=== PATIENT | male | born 1935 | race Caucasian/White ===

== ENCOUNTER 2023-07-21 09:24 | Observation (INO) | payer MEDICARE, OTHER, SELFPAY ==
[2023-07-21] VITALS (10 sets, daily range): BP systolic 128–163; BP diastolic 73–96; PULSE 65–86; RESP 16–20; TEMP 36.3–36.8; O2SAT 94–99
--- NOTE | ~2023-07-21 | XR_ITS ---
EXAMINATION: XR chest 1V portable DATE: 07/21/2023 09:46 INDICATION: Dyspnea TECHNIQUE: frontal view of the chest was obtained. COMPARISON: None FINDINGS: Hazy opacities in the bilateral lower lung zones with blunting at costophrenic angles and small amoun t of fluid tracking along the fissures on the right consistent with small bilateral pleural effusions , right greater than left, with associated atelectasis or pneumonia. No pneumothorax or evident pulmo nary edema. The cardiomediastinal silhouette is within normal limits for AP technique. Spinal stimula tor leads project over the central canal the lower thoracic spine. IMPRESSION: 1. Small bilateral pleural effusions, right greater than left, with bibasilar atelectasis versus less pneumonia. Reviewed, dictated and finalized at location A. IMPRESSION: 1. Small bilateral pleural effusions, right greater than left, with bibasilar a telectasis versus less pneumonia.
--- NOTE | ~2023-07-21 | US_ITS ---
EXAMINATION:US venous doppler LE BI INDICATION:Leg edema TECHNIQUE: Multiple grayscale, color flow and Doppler images of the right and left lower extremity de ep venous systems were obtained and reviewed. COMPARISON:No prior studies for comparison. FINDINGS: The common femoral, superficial femoral and popliteal veins demonstrate normal respiratory variation, augmentation and compressibility. Color flow is also seen within the posterior tibial, pe roneal, greater saphenous and profunda veins. IMPRESSION: 1: No lower extremity deep venous thrombosis. Reviewed, dictated and finalized at location L.
--- NOTE | 2023-07-21 09:27 | ECG_ITS ---
Measurements Intervals [place] Rate: 74 P: 138 SD: 184 QRS: -45 QRSD: 169 T: 0 QT: 442 QTc: 491 Interpretive Statements POOR QUALITY ECG BECAUSE OF ELECTRICAL ARTIFACT SINUS RHYTHM RIGHT BUNDLE BRANCH BLOCK LEFTWARD AXIS NONSPECIFIC T-WAVE ABNORMALITY ABNORMAL ECG NO PREVIOUS ECG AVAILABLE FOR COMPARISON Electronically Signed On 07-21-2023 14:52:28 CDT by Yang Tang M.D.
--- NOTE | 2023-07-21 09:39 | ED.SOB ---
HPI - SOB/Dyspnea General Chief Complaint: Shortness of Breath/Dyspnea Stated Complaint: dyspnea Time Seen by Provider: 07/21/23 09:35 History of Present Illness HPI Narrative: Pt presents with progressively worsening SOB over last two days. Pt says he is swelling in his legs as well. Pt has cough productive of clear sputum. SOB is worse when lying flat better when upright. Pt denies CP or fever. Pt has history of pacer, stent and CHF. Pt is from [place] and called his information receptionist who said he should come in. Related Data Home Medications Medication Instructions Recorded Confirmed Eliquis 5 mg PO BID 07/21/23 07/21/23 Jardiance 10 mg PO DAILY 07/21/23 07/21/23 amiodarone 200 mg PO DAILY 07/21/23 07/21/23 atorvastatin 40 mg tablet 40 mg PO HS 07/21/23 07/21/23 bumetanide 1 mg tablet 1 mg PO DAILY 07/21/23 07/21/23 clopidogrel 75 mg tablet 75 mg PO DAILY 07/21/23 07/21/23 finasteride 5 mg PO HS 07/21/23 07/21/23 losartan 50 mg PO HS 07/21/23 07/21/23 tamsulosin 0.4 mg capsule 0.4 mg PO HS 07/21/23 07/21/23 Allergies Allergy/AdvReac Type Severity Reaction Status Date / Time No Known Allergies Allergy Verified 07/21/23 09:34 Review of Systems Review of Systems: All systems reviewed & are unremarkable except as noted in HPI and below PMFSH Family History Family History (Updated 07/21/23 @ 11:41 by Vicky Peoples RN) Mother CHF (congestive heart failure) Sibling Cerebrovascular accident Social History Social History Smoking status: Former smoker Alcohol intake: never Substance use: never Substance use type: does not use Lack of Transportation: No Lack of Food: Never True Current Housing: I Have Housing Concerned About Future Housing: No Difficulty Paying Gas/Electric Bills: No Difficulty Paying for Meds: No Currently Unemployed: No Education: Master's Degree or Higher Difficulty w/ Childcare or Family Care: No Spiritual care concerns: No Exam Const: General: healthy appearing and no acute distress Nutritional Appearance: well nourished Orientation/consciousness: patient oriented x3 Neck: Neck: normal visual inspection Chest: Chest palpation & inspection: normal inspection of the chest Resp: Effort & Inspection: normal respiratory effort Auscultation: crackles Cardio: Rate: regular rate Rhythm: regular rhythm GI: GI Palp: Yes Soft to palpation Auscultation: normal bowel sounds Skin: General skin exam: normal color Rashes: no rashes Wounds: no wounds Neuro: General: patient oriented x3, moves all extremities and no focal motor deficits Speech: normal speech Extrem: Other: edema to lower extremities Psych: Mental Status: mental status grossly normal Affect: normal affect Attitude: cooperative Course Vital Signs Vital signs: Vital Signs Temperature 98.2 F 07/21/23 09:29 Pulse Rate 75 07/21/23 09:29 Respiratory Rate 16 07/21/23 09:29 Blood Pressure 156/89 H 07/21/23 09:29 Pulse Oximetry 99 07/21/23 09:29 Temperature 97.7 F 07/21/23 14:00 Pulse Rate 72 07/21/23 16:00 Respiratory Rate 20 07/21/23 14:00 Blood Pressure 128/79 07/21/23 14:00 Pulse Oximetry 97 07/21/23 14:00 Oxygen Delivery Room Air 07/21/23 11:47 MDM - SOB/Dyspnea MDM Narrative Medical decision making narrative: seems most likely chf will rule out mi with trop and get cxr and labs. will give order for lasix assuming chf. pt has mild effusions on cxr mild elevation of bnp trop neg pt feels better after lasix. given pt is from out of town should probably be observed. discussed with Thiago Santillan and agreest o admit for obs. Lab Data 07/21/23 09:36 07/21/23 09:36 Labs: Lab Results 07/21/23 Range/Units 09:36 WBC 6.0 (4.5-10.0) K/mm3 RBC 4.75 (4.6-6.20) M/mm3 Hgb 14.4 (14.0-18.0) g/dL Hct 44.8 (42.0-52.0) % MCV 94.3 (80-100) fl MCH 30.3 (26-34) pg MCHC 32.1 (32-36)
[2023-07-21 09:42] LABS: Basophils Percent Auto 0.7 % (0.2-1.2); Eosinophils Absolute Auto 0.2 K/mm3 (0-0.3); Eosinophils Percent Auto 3.3 % (0-4.4); Hematocrit 44.8 % (42.0-52.0); Hemoglobin 14.4 g/dL (14.0-18.0); Immature Granulocyte Absolute 0.02 K/mm3 (0.00-0.031); Immature Granulocyte Percent A 0.3 % (0-0.5); Lymphocytes Absolute Auto 0.62 K/mm3 (0.9-3.2); Lymphocytes Percent Auto 10.3 % (18.3-44.2); Mean Corpuscular HGB Conc 32.1 g/dl (32-36); Mean Corpuscular Hemoglobin 30.3 pg (26-34); Mean Corpuscular Volume 94.3 fl (80-100); Mean Platelet Volume 12.3 fl (7.4-10.4); Monocytes Absolute Auto 0.5 K/mm3 (0.1-0.6); Monocytes Percent Auto 7.5 % (2.6-8.5); Neutrophils Absolute Auto 4.7 K/mm3 (1.3-6.7); Neutrophils Percent Auto 77.9 % (45.5-73.1); Platelet Count Result 128 k/mm3 (150-375); Red Blood Count 4.75 M/mm3 (4.6-6.20); Red Cell Distribution Width 19.7 % (11.5-14.5)
[2023-07-21] MEDS: FUROSEMIDE INJ 40 MG/4 ML VIAL IV PUSH (09:44)
[2023-07-21 09:53] LABS: Alanine Aminotransferase 47 U/L (6-50); Alkaline Phosphatase 168 U/L (38-126); Anion Gap 7 mmol/L (8-16); Aspartate Amino Transferase 38 U/L (17-59); Blood Urea Nitrogen 20 mg/dL (9-20); Calcium 8.5 mg/dL (8.4-10.2); Carbon Dioxide 25 mmol/L (22-30); Chloride 104 mmol/L (98-107); Estimated CRCL calculation 62 ml/min; Estimated Glomerular Filt Rate > 60; Glucose 142 mg/dL (65-110); INR 1.5; Potassium 3.9 mmol/L (3.4-5.0); Prothrombin Time 18.9 Seconds (11.1-14.7); Sodium 136 mmol/L (137-145)
[2023-07-21 09:54] LABS: Partial Thromboplastin Time 31.2 SECONDS (22.3-36.8)
[2023-07-21 10:04] LABS: NT Pro B Type Natriuretic Pept 421 pg/mL (19.9-100); Troponin I < 0.012 ng/mL (0.000-0.034)
--- NOTE | 2023-07-21 11:20 | ADMGEN ---
This patient, Aleksandar Miller, was admitted to [address] [place] [address] Room 325-01. Patient/family oriented to hospital policies and general routines including ID bracelet, bed and alarms, visiting hours, pain management, procedures, bathroom and other care routines, personal items, smoking policy, room service/diet, and visiting hours. Information on how to activate the Rapid Response Team has been discussed. Patient/Family are encouraged to report perceived risks to care and to ask questions if they do not understand what they are told or what they should do.
--- NOTE | 2023-07-21 14:08 | PM.IMHP ---
H&P: HPI History of Present Illness Date/Time: 07/21/23 14:08 Chief Complaint: Shortness of breath Narrative: Pt presents with progressively worsening SOB over last two days.? Pt says he is swelling in his legs as well.? Pt has cough productive of clear sputum.? SOB is worse when lying flat better when upright.? Pt denies CP or fever.? Pt has history of pacer, stent and CHF.? Pt is from [place] and called his hunting sales associate who said he should come in. Ports worsening lower extremity edema Review of Systems Review of Systems: - CONSTITUTIONAL: Denies weight loss, fever and chills. - HEENT: Denies changes in vision and hearing - RESPIRATORY: See HPI. - CV: Denies palpitations and CP. - GI: Denies abdominal pain, nausea, vomiting and diarrhea. - : Denies dysuria and urinary frequency. - MSK: Denies myalgia and joint pain. - SKIN: Denies rash and pruritus. - NEUROLOGICAL: Denies headache and syncope. - PSYCHIATRIC: Denies recent changes in mood. Denies anxiety and depression. [facility] Family History Family History (Updated 07/21/23 @ 11:41 by Vicky Peoples, ADELINE) Mother CHF (congestive heart failure) Sibling Cerebrovascular accident Social History Social History Smoking status: Former smoker Alcohol intake: never Substance use: never Substance use type: does not use Lack of Transportation: No Lack of Food: Never True Current Housing: I Have Housing Concerned About Future Housing: No Difficulty Paying Gas/Electric Bills: No Difficulty Paying for Meds: No Currently Unemployed: No Education: Master's Degree or Higher Difficulty w/ Childcare or Family Care: No Spiritual care concerns: No Meds Home Medications and Allergies Home Medications Medication Instructions Recorded Confirmed Type Eliquis 5 mg PO BID 07/21/23 07/21/23 History Jardiance 10 mg PO DAILY 07/21/23 07/21/23 History amiodarone 200 mg PO DAILY 07/21/23 07/21/23 History atorvastatin 40 mg tablet 40 mg PO HS 07/21/23 07/21/23 History bumetanide 1 mg tablet 1 mg PO DAILY 07/21/23 07/21/23 History finasteride 5 mg PO HS 07/21/23 07/21/23 History losartan 50 mg PO HS 07/21/23 07/21/23 History tamsulosin 0.4 mg capsule 0.4 mg PO HS 07/21/23 07/21/23 History Allergies Allergy/AdvReac Type Severity Reaction Status Date / Time No Known Allergies Allergy Verified 07/21/23 09:34 Vital Signs Vital Signs - 24 hr 07/21/23 09:29 07/21/23 09:38 07/21/23 10:33 Temperature 98.2 F Pulse Rate 75 72 71 Respiratory Rate 16 20 Blood Pressure 156/89 H 163/96 H Pulse Oximetry 99 94 Oxygen Delivery 07/21/23 11:06 07/21/23 11:47 07/21/23 12:00 Temperature Pulse Rate 86 75 Respiratory Rate 16 Blood Pressure 142/86 H Pulse Oximetry 98 95 Oxygen Delivery Room Air Exam Narrative: GENERAL: The patient is well developed, not in acute distress HEENT: Nonicteric sclerae, PERRLA, EOMI. Oropharynx clear. Moist mucous membranes. Conjunctivae appear well perfused. CHEST: Chest wall is nontender. HEART: Regular rate and rhythm without murmur, rubs, or gallops LUNGS: Clear to auscultation bilaterally. no respiratory distress ABDOMEN: Soft, positive bowel sounds, non-tender, no organomegaly. SKIN: No rash, no excessive bruising, petechiae, or purpura. NEUROLOGIC: Cranial nerves II-XII intact, alert and oriented x 3, no gross motor deficits EXTREMITIES: no edema, cyanosis or clubbing H&P: Results Labs Labs: Short CBC 07/21/23 Range/Units 09:36 WBC 6.0 (4.5-10.0) K/mm3 Hgb 14.4 (14.0-18.0) g/dL Hct 44.8 (42.0-52.0) % Plt Count 128 L (150-375) k/mm3 BMP 07/21/23 09:36 Sodium 136 L Potassium 3.9 Chloride 104 Carbon Dioxide 25 BUN 20 Creatinine 0.70 Glucose 142 H Calcium 8.5 Cardiac Enzymes 07/21/23 Range/Units 09:36 Troponin I < 0.012 (0.000-0.034) ng/mL Liver Function 07/21/23 Range/Units 09:36 Total B
[2023-07-21 14:19] LABS: Troponin I < 0.012 ng/mL (0.000-0.034)
[2023-07-21 17:05] LABS: Troponin I < 0.012 ng/mL (0.000-0.034)
[2023-07-21] MEDS: BUMETANIDE INJ 1 MG/4 ML VIAL IV PUSH (17:10)
[2023-07-21] MEDS: APIXABAN 5 MG TABLET BY MOUTH (20:43)
[2023-07-21] MEDS: FINASTERIDE 5 MG TABLET PO (20:43)
[2023-07-21] MEDS: TAMSULOSIN HCL 0.4 MG CAPSULE PO (20:43)
[2023-07-21] MEDS: LOSARTAN POTASSIUM 50 MG TABLET PO (20:43)
[2023-07-21] MEDS: ATORVASTATIN 40 MG TABLET PO (20:43)
[2023-07-22] VITALS (10 sets, daily range): BP systolic 105–137; BP diastolic 59–85; PULSE 64–77; RESP 16–20; TEMP 35.9–36.9; O2SAT 96–98
[2023-07-22 06:56] LABS: Basophils Absolute Auto 0.1 K/mm3 (0.0-0.1); Basophils Percent Auto 1.3 % (0.2-1.2); Eosinophils Absolute Auto 0.2 K/mm3 (0-0.3); Eosinophils Percent Auto 3.9 % (0-4.4); Hematocrit 41.6 % (42.0-52.0); Hemoglobin 13.3 g/dL (14.0-18.0); Immature Granulocyte Absolute 0.01 K/mm3 (0.00-0.031); Immature Granulocyte Percent A 0.2 % (0-0.5); Immature Platelet Fraction Pct 9.6 % (0.9-11.2); Lymphocytes Percent Auto 12.9 % (18.3-44.2); Mean Corpuscular Hemoglobin 30.2 pg (26-34); Mean Corpuscular Volume 94.5 fl (80-100); Mean Platelet Volume 11.2 fl (7.4-10.4); Monocytes Absolute Auto 0.5 K/mm3 (0.1-0.6); Monocytes Percent Auto 11.4 % (2.6-8.5); Neutrophils Absolute Auto 3.3 K/mm3 (1.3-6.7); Neutrophils Percent Auto 70.3 % (45.5-73.1); Platelet Count Result 110 k/mm3 (150-375); Red Cell Distribution Width 19.4 % (11.5-14.5); White Blood Count 4.7 K/mm3 (4.5-10.0)
[2023-07-22 07:02] LABS: Alanine Aminotransferase 37 U/L (6-50); Albumin Level 3.3 g/dL (3.5-5.1); Alkaline Phosphatase 149 U/L (38-126); Anion Gap 4 mmol/L (8-16); Aspartate Amino Transferase 30 U/L (17-59); Bilirubin,Total 1.3 mg/dL (0.2-1.3); Blood Urea Nitrogen 19 mg/dL (9-20); Calcium 8.3 mg/dL (8.4-10.2); Carbon Dioxide 26 mmol/L (22-30); Chloride 105 mmol/L (98-107); Estimated CRCL calculation 55 ml/min; Estimated Glomerular Filt Rate > 60; Glucose 90 mg/dL (65-110); Magnesium 2.3 mg/dL (1.6-2.3); Potassium 3.2 mmol/L (3.4-5.0); Sodium 135 mmol/L (137-145)
[2023-07-22] MEDS: BUMETANIDE INJ 1 MG/4 ML VIAL IV PUSH ×2 (09:01→16:46)
[2023-07-22] MEDS: APIXABAN 5 MG TABLET BY MOUTH ×2 (09:02→21:22)
[2023-07-22] MEDS: EMPAGLIFLOZIN 10 MG TABLET PO (09:02)
[2023-07-22] MEDS: AMIODARONE HCL 200 MG TABLET PO (09:03)
[2023-07-22] MEDS: CLOPIDOGREL BISULFATE 75 MG TABLET PO (09:03)
[2023-07-22] MEDS: POTASSIUM CHLORIDE 20 MEQ ER TABLET 40 MEQ PO (09:04)
--- NOTE | 2023-07-22 15:13 | PM.IMPN ---
Progress Note: A&P Assessment and Plan (1) Congestive heart failure: Code(s): I50.9 - Heart failure, unspecified Status: Acute Plan Acute on chronic congestive heart failure. on Bumex at home will change to IV. BNP of 420 1- troponin EKG with left bundle-branch block, sinus rhythm. Chest x-ray with hazy opacities in lower lung with blunting costophrenic angle small tracking along the fissures on the right consistent small bilateral pleural effusions right greater than with associated atelectasis or pneumonia. IV diuresis with Bumex. Continue on diuresis Lower extremity edema on chronic anticoagulation likely due to CHF Coronary artery disease with stents to LAD distal 01/2023 on Plavix along with Eliquis Hypertension hyperlipidemia BPH Atrial fibrillation needing cardioversion earlier 2022. On amiodarone and Eliquis and metoprolol Chronic anti coagulation with Eliquis DVT prophylaxis on Eliquis Code status full code Subjective Date/time seen: 07/22/23 15:13 Interval history: feels better. Leg swelling still persists. Has been ambulating to the bathroom. No cough or chest pain Review of Systems Review of Systems: All systems reviewed & are unremarkable except as noted in HPI and below Exam Narrative: GENERAL: The patient is well developed, not in acute distress HEENT: Nonicteric sclerae, PERRLA, EOMI. Oropharynx clear. Moist mucous membranes. Conjunctivae appear well perfused. CHEST: Chest wall is nontender. HEART: Regular rate and rhythm without murmur, rubs, or gallops LUNGS: Clear to auscultation bilaterally. no respiratory distress ABDOMEN: Soft, positive bowel sounds, non-tender, no organomegaly. SKIN: No rash, no excessive bruising, petechiae, or purpura. NEUROLOGIC: Cranial nerves II-XII intact, alert and oriented x 3, no gross motor deficits EXTREMITIES: no edema, cyanosis or clubbing Objective Data Vital Signs Vital Signs: Vital Signs - 24 hr 07/21/23 16:00 07/21/23 20:00 07/21/23 20:00 Temperature Pulse Rate 72 77 72 Respiratory Rate 20 Blood Pressure Pulse Oximetry 97 Oxygen Delivery Room Air 07/22/23 00:00 07/21/23 22:00 07/22/23 04:00 Temperature 97.4 F L Pulse Rate 66 71 72 Respiratory Rate 18 Blood Pressure 151/73 H Pulse Oximetry 97 Oxygen Delivery 07/22/23 06:00 07/22/23 09:03 07/22/23 08:00 Temperature 96.9 F L Pulse Rate 64 74 65 Respiratory Rate 20 Blood Pressure 105/59 L Pulse Oximetry 96 Oxygen Delivery 07/22/23 12:00 07/22/23 14:00 Temperature 98.5 F Pulse Rate 77 65 Respiratory Rate 20 Blood Pressure 135/81 Pulse Oximetry 98 Oxygen Delivery Intake/Output Intake/Output: Intake & Output 07/19/23 07/20/23 07/21/23 07/22/23 23:59 23:59 23:59 23:59 Intake Total 920 865 Output Total 1900 1250 Balance -980 -385 Meds/Results Medications: Active Medications Generic Name Dose Route Start Last Admin Trade Name Freq PRN Reason Stop Dose Admin Amiodarone HCl 200 mg 07/22/23 09:00 07/22/23 09:03 Amiodarone Hcl 200 Mg Tablet PO 200 mg DAILY GISELLE Administration Apixaban 5 mg 07/21/23 21:00 07/22/23 09:02 Apixaban 5 Mg Tablet BY MOUTH 5 mg Q12HR GISELLE Administration Atorvastatin Calcium 40 mg 07/21/23 21:00 07/21/23 20:43 Atorvastatin 40 Mg Tablet PO 40 mg HS GISELLE Administration Bumetanide 1 mg 07/21/23 17:00 07/22/23 09:01 Bumetanide Inj 1 Mg/4 Ml Vial IV PUSH 1 mg BID GISELLE Administration Clopidogrel Bisulfate 75 mg 07/22/23 09:00 07/22/23 09:03 Clopidogrel Bisulfate 75 Mg Tablet PO 75 mg QAM GISELLE Administration Empagliflozin 10 mg 07/22/23 09:00 07/22/23 09:02 Empagliflozin 10 Mg Tablet PO 10 mg DAILY GISELLE Administration Finasteride 5 mg 07/21/23 21:00 07/21/23 20:43 Finasteride 5 Mg Tablet PO 5 mg HS GISELLE Administration Losartan Potassium 50 mg 07/21/23 21:00 07/21/23 20:43 Losartan Potassium 50 Mg T
[2023-07-22] MEDS: LOSARTAN POTASSIUM 50 MG TABLET PO (21:22)
[2023-07-22] MEDS: TAMSULOSIN HCL 0.4 MG CAPSULE PO (21:22)
[2023-07-22] MEDS: ATORVASTATIN 40 MG TABLET PO (21:22)
[2023-07-22] MEDS: FINASTERIDE 5 MG TABLET PO (21:22)
[2023-07-23] VITALS: PULSE 67
[2023-07-23 04:00] VITALS: PULSE 66
[2023-07-23 06:00] VITALS: BP 126/73; PULSE 69; RESP 20; TEMP 36.1; O2SAT 96
[2023-07-23 06:04] LABS: Basophils Absolute Auto 0.1 K/mm3 (0.0-0.1); Basophils Percent Auto 1.1 % (0.2-1.2); Eosinophils Absolute Auto 0.2 K/mm3 (0-0.3); Eosinophils Percent Auto 3.8 % (0-4.4); Hematocrit 42.5 % (42.0-52.0); Hemoglobin 13.5 g/dL (14.0-18.0); Immature Granulocyte Absolute 0.01 K/mm3 (0.00-0.031); Immature Granulocyte Percent A 0.2 % (0-0.5); Immature Platelet Fraction Pct 9.5 % (0.9-11.2); Lymphocytes Absolute Auto 0.52 K/mm3 (0.9-3.2); Lymphocytes Percent Auto 11.5 % (18.3-44.2); Mean Corpuscular HGB Conc 31.8 g/dl (32-36); Mean Corpuscular Hemoglobin 29.9 pg (26-34); Monocytes Absolute Auto 0.6 K/mm3 (0.1-0.6); Monocytes Percent Auto 12.1 % (2.6-8.5); Neutrophils Absolute Auto 3.2 K/mm3 (1.3-6.7); Neutrophils Percent Auto 71.3 % (45.5-73.1); Platelet Count Result 118 k/mm3 (150-375); Red Blood Count 4.52 M/mm3 (4.6-6.20); Red Cell Distribution Width 19.2 % (11.5-14.5); White Blood Count 4.5 K/mm3 (4.5-10.0)
[2023-07-23 06:18] LABS: Anion Gap 3 mmol/L (8-16); Blood Urea Nitrogen 23 mg/dL (9-20); Calcium 8.3 mg/dL (8.4-10.2); Carbon Dioxide 27 mmol/L (22-30); Chloride 103 mmol/L (98-107); Estimated CRCL calculation 55 ml/min; Estimated Glomerular Filt Rate > 60; Glucose 90 mg/dL (65-110); Magnesium 2.2 mg/dL (1.6-2.3); Potassium 3.5 mmol/L (3.4-5.0); Sodium 133 mmol/L (137-145)
[2023-07-23 08:00] VITALS: PULSE 74
[2023-07-23] MEDS: BUMETANIDE INJ 1 MG/4 ML VIAL IV PUSH (08:35)
[2023-07-23 08:36] VITALS: PULSE 71
[2023-07-23] MEDS: EMPAGLIFLOZIN 10 MG TABLET PO (08:36)
[2023-07-23] MEDS: CLOPIDOGREL BISULFATE 75 MG TABLET PO (08:36)
[2023-07-23] MEDS: APIXABAN 5 MG TABLET BY MOUTH (08:36)
[2023-07-23] MEDS: AMIODARONE HCL 200 MG TABLET PO (08:36)
[2023-07-23 12:00] VITALS: PULSE 75
--- NOTE | 2023-07-23 13:46 | PM.DS ---
DS: Admitting Diagnosis Discharge Date 07/23/23 Admitting Diagnosis acute decompensate heart failure DS: Discharge Diagnosis Discharge Diagnosis (1) Congestive heart failure: Code(s): I50.9 - Heart failure, unspecified Status: Acute DS: Summary Hospital Course Hospital Course: 88M w/ PMH HTN, HLD CAd s/p stents, a fib on eliquis, BPH, CHF presented with shortness of breath. He is visiting a friend from [place] and has forgotten to take his bumex. With IV diuresis with bumex the patient's condition has improved. he is discharged home on his usual regimen. he agrees he will take his schedule medications. stable. full code. f/u with PCP in [facility] in 1 week. More than 30 minutes spent on discharge planning and documentation. Time Spent with Patient Time attestation: Total time spent providing and/or coordinating discharge services: Exam Const: General: cooperative and no acute distress Resp: Effort & Inspection: normal respiratory effort Auscultation: clear to auscultation bilaterally Cardio: Rate: regular rate Rhythm: regular rhythm Heart sounds: S1 normal heart sound present and S2 normal heart sound present GI: GI Palp: No abdominal tenderness Auscultation: normal bowel sounds Extrem: General: edema Other: 1+ pitting edema of b/l ankles DS: Data Data Completed and Pending Labs on day of discharge: Labs from last 24 hours 07/23/23 05:41 WBC 4.5 RBC 4.52 L Hgb 13.5 L Hct 42.5 MCV 94.0 MCH 29.9 MCHC 31.8 L RDW 19.2 H Plt Count 118 L MPV 12.0 H Immature Gran % (Auto) 0.2 Neut % (Auto) 71.3 Lymph % (Auto) 11.5 L [place] % (Auto) 12.1 H Eos % (Auto) 3.8 Baso % (Auto) 1.1 Lymph # (Auto) 0.52 L [place] # (Auto) 0.6 Eos # (Auto) 0.2 Baso # (Auto) 0.1 Abs Immat Gran (auto) 0.01 Absolute Neuts (auto) 3.2 Absolute Nucleated RBC 0.0 Nucleated RBC % 0.0 % Immature Plt Fraction 9.5 Sodium 133 L Potassium 3.5 Chloride 103 Carbon Dioxide 27 Anion Gap 3 L BUN 23 H Creatinine 0.80 Estim Creat Clear Calc 55 Estimated GFR > 60 Glucose 90 Calcium 8.3 L Magnesium 2.2 Discharge Plan Discharge Attending physician on discharge: Blaire Lopez Discharging Clinician: Blaire Lopez Patient Disposition: Home, Self-Care Activity: may shower Diet: heart healthy Patient Instructions: Apixaban (By mouth), Heart Failure (DC) Stand Alone Forms: General Discharge Information Follow-up/Referrals: PHYSICIAN,ROAD HOGGER OPERATOR [Primary Care Provider] - Discharge Medications: Continued Eliquis 5 mg PO BID Jardiance 10 mg PO DAILY amiodarone 200 mg PO DAILY finasteride 5 mg PO HS losartan 50 mg PO HS atorvastatin 40 mg tablet 40 mg PO HS tamsulosin 0.4 mg capsule 0.4 mg PO HS bumetanide 1 mg tablet 1 mg PO DAILY clopidogrel 75 mg tablet 75 mg PO DAILY Date of admission: 07/21/23 10:37 Primary Care Provider: PHYSICIAN,ROAD HOGGER OPERATOR Admitting Provider: Cody Blanco Attending physician on admission: Cody Blanco Condition: Improved
== END 2023-07-23 14:35 | disposition home or self-care (01) ==
LOC: ANHED 10:36 → ANH3MEDSUR 11:49
PROVIDERS: Admitting Provider Internal Medicine; Emergency Provider Emergency Medicine; Visit Provider General Practice
DX: I11.0 Hypertensive heart disease with heart failure (principal); I50.9 Heart failure, unspecified; I25.10 Atherosclerotic heart disease of native coronary artery without angina pectoris; Z95.5 Presence of coronary angioplasty implant and graft; Z95.0 Presence of cardiac pacemaker; E78.5 Hyperlipidemia, unspecified; J90 Pleural effusion, not elsewhere classified; R60.0 Localized edema; N40.0 Benign prostatic hyperplasia without lower urinary tract symptoms; I48.91 Unspecified atrial fibrillation; R94.31 Abnormal electrocardiogram [ECG] [EKG]; R91.8 Other nonspecific abnormal finding of lung field; Z87.891 Personal history of nicotine dependence; Z79.01 Long term (current) use of anticoagulants; Z79.84 Long term (current) use of oral hypoglycemic drugs; Z79.02 Long term (current) use of antithrombotics/antiplatelets; Z79.899 Other long term (current) drug therapy; Z82.49 Family history of ischemic heart disease and other diseases of the circulatory system
CPT/HCPCS: 36415; 71045; 80048; 80053; 83735; 83880; 84484; 85025; 85055; 85610; 85730; 93005; 93970; 96374; 96376; 99285; A9270; G0378; J1940